=== PATIENT | male | born 1985 | race Caucasian/White ===

== ENCOUNTER 2017-12-21 04:04 | Emergency (ER) | payer SELFPAY ==
[2017-12-21 04:19] VITALS: BMI 26.6
[2017-12-21] MEDS ORDERED: SODIUM CHLORIDE 1,000 ML IV STA (04:24)
[2017-12-21] MEDS ORDERED: KETOROLAC TROMETHAMINE 30 MG/1 ML VIAL IVPUSH ONE (04:32)
[2017-12-21] MEDS ORDERED: KETOROLAC TROMETHAMINE 30 MG/1 ML VIAL ONE (05:01)
[2017-12-21 05:04] LABS: BASO % 0.6 % (0-2.0); EOS % 2.5 % (0-4.5); HEMATOCRIT 48.5 % (35.4-49); HEMOGLOBIN 16.3 GM/dL (11.7-16.9); LYMPH % 34.7 % (8-40); MCHC 33.7 g/dl (32.0-35.9); MEAN CELL VOLUME 83.1 fl (80-96); MEAN PLT VOLUME 7.7 fl (7.5-11.1); MONO % 8.4 % (3.8-10.2); NEUT % 53.8 % (42.8-82.8); PLATELET COUNT 210 K/MM3 (134-434); RBC 5.83 M/mm3 (4.00-5.60); WHITE BLOOD COUNT 7.2 K/mm3 (4.0-10.0)
[2017-12-21 05:35] LABS: ALK PHOS 108 U/L (45-117); ANION GAP 9 MMOL/L (8-16); BILIRUBIN,TOTAL 0.6 mg/dL (0.2-1); BLOOD UREA NITROGEN 17 mg/dL (7-18); CALCIUM 9.2 mg/dL (8.5-10.1); CHLORIDE 106 mmol/L (98-107); CO2 25 mmol/L (21-32); GLUCOSE,RANDOM 94 mg/dL (74-106); POTASSIUM 3.9 mmol/L (3.5-5.1); SGOT/AST 16 U/L (15-37); SGPT/ALT 59 U/L (13-61); SODIUM 140 mmol/L (136-145); TOT PROT 7.5 g/dl (6.4-8.2)
--- NOTE | 2017-12-21 05:50 | PDOC ---
*Physical Exam - Vital Signs Last Vital Signs Temp Pulse Resp BP Pulse Ox 97.4 F L 74 18 161/103 H 99 12/21/17 04:16 12/21/17 04:16 12/21/17 04:16 12/21/17 04:16 12/21/17 04:16 - Physical Exam Comments: 12/21/17 05:46 Afebrile, blood pressure elevated possibly secondary to pain Alert, no acute distress Heart is regular, lungs are clear Abdomen is soft and nondistended, tender along the left lateral abdomen with positive left CVA tenderness No edema, no rash ED Treatment Course - LABORATORY CBC & Chemistry Diagram: 12/21/17 04:54 12/21/17 04:54 - ADDITIONAL ORDERS Additional order review: Laboratory Results 12/21/17 04:54 Sodium 140 Potassium 3.9 Chloride 106 Carbon Dioxide 25 Anion Gap 9 BUN 17 Creatinine 1.0 Creat Clearance w eGFR > 60 Random Glucose 94 Calcium 9.2 Total Bilirubin 0.6 AST 16 ALT 59 Alkaline Phosphatase 108 Total Protein 7.5 Albumin 4.0 12/21/17 04:54 RBC 5.83 H MCV 83.1 MCHC 33.7 RDW 14.0 MPV 7.7 Neutrophils % 53.8 Lymphocytes % 34.7 Monocytes % 8.4 Eosinophils % 2.5 Basophils % 0.6 - Medications Given in the ED: ED Medications Discontinued Medications Generic Name Dose Route Start Last Admin Trade Name Freq PRN Reason Stop Dose Admin Sodium Chloride 1,000 mls @ 1,000 mls/hr 12/21/17 04:24 12/21/17 04:57 Normal Saline - IV 12/21/17 05:23 1,000 mls/hr ASDIR STA Administration Ketorolac Tromethamine 30 mg 12/21/17 04:32 12/21/17 04:58 Toradol Injection - IVPUSH 12/21/17 04:33 30 mg ONCE ONE Administration Medical Decision Making - Medical Decision Making 12/21/17 05:47 32-year-old male with history of kidney stones presents with 1-2 months of intermittent left flank pain and now severe left groin/left flank pain tonight. mild nausea, no vomiting. presentation most consistent with renal colic given hx , less likely GI. labs wnl, no leukocytosis, Cr nl UA pending CTAP shows dilated L extrarenal pelvis with moderate hydroureter 2/2 8x3mm UPJ stone. given large proximal stone and hydro, urology consult. received toradol with some improvement in pain level *DC/Admit/Observation/Transfer Diagnosis at time of Disposition: Renal colic on left side - Discharge Dispostion Condition at time of disposition: Stable - Referrals - Patient Instructions - Post Discharge Activity
--- NOTE | 2017-12-21 05:55 | PDOC ---
History of Present Illness - General Chief Complaint: Pain Stated Complaint: ABDOMINAL PAIN LEFT SIDE Time Seen by Provider: 12/21/17 04:17 History Source: Patient Exam Limitations: No Limitations - History of Present Illness Initial Comments: 32 y/o M hx of HTN, prior kidney stones 2017 s/p lithotripsy presents with L groin pain radiating up to L flank x several months, but getting severe tonight ; prior to this, the pain was mild in nature. States the pain feels just like his prior kidney stones and is in the exact location. Denies fever, chills, sob , cp, n/v/d, hematuria, dysuria, testicular pain, scrotal swelling, penile pain , testicular discharge. 12/21/17 05:48 Past History - Past Medical History Allergies/Adverse Reactions: Allergies Allergy/AdvReac Type Severity Reaction Status Date / Time No Known Allergies Allergy Verified 12/21/17 06:46 Home Medications: Ambulatory Orders Oxycodone HCl/Acetaminophen [Percocet 5-325 mg Tablet] 1 tab PO Q4H PRN #20 tablet MDD 6 12/21/17 Tamsulosin HCl [Flomax] 0.4 mg PO HS #7 cap.er.24h 12/21/17 COPD: No Other medical history: HTN, kidney stones - Suicide/Smoking/Psychosocial Hx Smoking History: Never smoked Have you smoked in the past 12 months: No Information on smoking cessation initiated: No Hx Alcohol Use: No Drug/Substance Use Hx: No Substance Use Type: None Abd/GI Specific PMHX - Complaint Specific PMHX Colitis: No Diverticulitis: No Gall Bladder Disease: No GERD: No Hepatitis: No Irritable Bowel Synd (IBS): No Pancreatitis: No GI Ulcer Disease: No Review of Systems - Review of Systems Comments:: See HPI 12/21/17 06:04 *Physical Exam - Vital Signs Last Vital Signs Temp Pulse Resp BP Pulse Ox 97.4 F L 74 18 161/103 H 99 12/21/17 04:16 12/21/17 04:16 12/21/17 04:16 12/21/17 04:16 12/21/17 04:16 - Physical Exam General Appearance: Yes: Mild Distress Respiratory/Chest: positive: Lungs Clear, Normal Breath Sounds. negative: Respiratory Distress, Accessory Muscle Use Cardiovascular: positive: Regular Rhythm, Regular Rate Gastrointestinal/Abdominal: positive: Normal Bowel Sounds, Tenderness (Along L groin). negative: Protuberent, Distended, Guarding, Rebound, Hernia, Mass Male Genitalia: positive: normal genitalia. negative: testicular tenderness, hernia, CVAT Musculoskeletal: negative: CVA Tenderness Extremity: positive: Normal Inspection ED Treatment Course - LABORATORY CBC & Chemistry Diagram: 12/21/17 04:54 12/21/17 04:54 - ADDITIONAL ORDERS Additional order review: Laboratory Results 12/21/17 04:54 Sodium 140 Potassium 3.9 Chloride 106 Carbon Dioxide 25 Anion Gap 9 BUN 17 Creatinine 1.0 Creat Clearance w eGFR > 60 Random Glucose 94 Calcium 9.2 Total Bilirubin 0.6 AST 16 ALT 59 Alkaline Phosphatase 108 Total Protein 7.5 Albumin 4.0 12/21/17 04:54 RBC 5.83 H MCV 83.1 MCHC 33.7 RDW 14.0 MPV 7.7 Neutrophils % 53.8 Lymphocytes % 34.7 Monocytes % 8.4 Eosinophils % 2.5 Basophils % 0.6 - RADIOLOGY Radiology Studies Ordered: Category Date Time Status ABDOMEN & PELVIS CT W/O CONTR [CT] Stat CT Scan 12/21/17 04:33 Taken - Medications Given in the ED: ED Medications Discontinued Medications Generic Name Dose Route Start Last Admin Trade Name Freq PRN Reason Stop Dose Admin Sodium Chloride 1,000 mls @ 1,000 mls/hr 12/21/17 04:24 12/21/17 04:57 Normal Saline - IV 12/21/17 05:23 1,000 mls/hr ASDIR STA Administration Ketorolac Tromethamine 30 mg 12/21/17 04:32 12/21/17 04:58 Toradol Injection - IVPUSH 12/21/17 04:33 30 mg ONCE ONE Administration Medical Decision Making - Medical Decision Making 32 y/o M hx of HTN, prior kidney stones presents with likely kidney stones. Unlikely testicular torsion, diverticulitis, UTI, pyelonephritis. Patient was given IVF and Toradol with improvement in pain. Labs showed unremarkable CBC and CMP. UA is negative. CT A/P showed 8x3 proximal UPJ stone with moderate L hydro. Case discussed with urologist, Dr. James Gibbs, who states as this is not infected stone, patient can follow-up as outpatient to get lithotripsy. Will discharge patient on Percocet, Flomax and referral to Dr. Gibbs. 12/21/17 06:06 *DC/Admit/Observation/Transfer Diagnosis at time of Disposition: Urolithiasis - Discharge Dispostion Disposition: HOME Condition at time of disposition: Improved Decision to Admit order: No - Prescriptions Prescriptions: Oxycodone HCl/Acetaminophen [Percocet 5-325 mg Tablet] 1 tab PO Q4H PRN #20 tablet MDD 6 PRN Reason: Pain Tamsulosin HCl [Flomax] 0.4 mg PO HS #7 cap.er.24h - Referrals Referrals: James Gibbs MD., [Staff Physician] - Call tomorrow - Patient Instructions Printed Discharge Instructions: DI for Kidney Stones Additional Instructions: Thank you for choosing [facility]. It was a pleasure taking care of you. You were found to have a 8x3 mm kidney stone along the left side causing your pain. You may take Motrin 600 mg every 4 hours by mouth as needed for mild to moderate pain. Take Motrin with food. For severe pain, you may take Percocet. This medication can make you constipated for which you may take over the counter Senna tablets as needed. This medication can also make you drowsy so please be cautious with driving or performing heavy physical work. Be sure to drink plenty of water daily (at least 2 liters a day) Also take the Flomax to help the stone pass Call the urologist tomorrow to make appointment as you may need a procedure called lithotripsy done to get rid of stone. Return to the Emergency Department if your symptoms worsen or persist, you have fever, shortness of breath, chest pain, severe abdominal pain, vomiting, unable to produce urine or have other concerning symptoms. - Post Discharge Activity
[2017-12-21 06:23] LABS: URINE APPEARANCE CLEAR; URINE BILIRUBIN NEGATIVE (<2.0 mg/dL); URINE COLOR YELLOW; URINE GLUCOSE (UA) NEGATIVE (NEGATIVE); URINE KETONE NEGATIVE (NEGATIVE); URINE LEUK ESTERASE NEGATIVE (NEGATIVE); URINE NITRITE NEGATIVE (NEGATIVE); URINE PROTEIN NEGATIVE (NEGATIVE); URINE UROBILINOGEN NEGATIVE mg/dL (0.2-1.0)
[2017-12-21 06:35] VITALS: BP 145/97; PULSE 99; TEMP 97.9
[2017-12-21 06:52] LABS: EPI CELLS RARE /HPF (FEW); URINE MUCUS FEW
== END 2017-12-21 07:08 | disposition home or self-care (01) ==
LOC: JER 04:04
PROC: 3E0333Z Introduction of Anti-inflammatory into Peripheral Vein, Percutaneous Approach (ICD-10-PCS; principal; 2017-12-21)
PROC: 3E0337Z Introduction of Electrolytic and Water Balance Substance into Peripheral Vein, Percutaneous Approach (ICD-10-PCS; 2017-12-21)
DX: N20.9 Urinary calculus, unspecified (principal); I10 Essential (primary) hypertension
CPT/HCPCS: 36415; 74176-TC; 80053; 81003; 81015; 85025; 87086; 99282-25; J7030

== ENCOUNTER 2023-06-18 12:21 | Emergency (ER) | payer SELFPAY ==
[2023-06-18 12:30] VITALS: BMI 29.3
[2023-06-18] MEDS ORDERED: KETOROLAC TROMETHAMINE 30 MG/1 ML VIAL ONE (14:04)
[2023-06-18] MEDS: KETOROLAC TROMETHAMINE 30 MG/1 ML VIAL IVPUSH ONE (14:13)
[2023-06-18 14:14] LABS: BASO % 0.7 % (0-2.0); EOS % 0.8 % (0-4.5); HEMOGLOBIN 16.4 GM/dL (11.7-16.9); LYMPH % 24.4 % (8-40); MCH 28.5 pg (25.7-33.7); MCHC 33.5 g/dl (32.0-35.9); MEAN CELL VOLUME 85.3 fl (80-96); MEAN PLT VOLUME 7.8 fl (7.5-11.1); MONO % 6.8 % (3.8-10.2); NEUT % 67.3 % (42.8-82.8); PLATELET COUNT 249 10^3/uL (134-434); RBC 5.74 M/mm3 (4.00-5.60); RDW 14.3 % (11.9-15.9); WHITE BLOOD COUNT 7.2 K/mm3 (4.0-10.0)
[2023-06-18] MEDS: SODIUM CHLORIDE 0.9% 500 ML INFUS.BAG IV ONE (14:14)
[2023-06-18 14:20] LABS: EPI CELLS 5 /uL (0-25.1); HYALINE CASTS 0 /uL (0-3.1); URINE APPEARANCE CLEAR; URINE BACTERIA 4 /uL (0-1359); URINE BILIRUBIN NEGATIVE (NEGATIVE); URINE COLOR YELLOW; URINE GLUCOSE (UA) NEGATIVE (NEGATIVE); URINE KETONE NEGATIVE (NEGATIVE); URINE LEUK ESTERASE TRACE (NEGATIVE); URINE NITRITE NEGATIVE (NEGATIVE); URINE PROTEIN TRACE (NEGATIVE); URINE RBC 337 /uL (0-23.9); URINE UROBILINOGEN 0.2 mg/dL (0.2-1.0); URINE WBC 23 /uL (0-25.8)
[2023-06-18 14:48] LABS: POTASSIUM 4.2 mmol/L (3.5-5.1)
[2023-06-18 14:50] LABS: CALCIUM 9.9 mg/dL (8.5-10.1)
[2023-06-18 14:51] LABS: ALBUMIN 4.2 g/dl (3.4-5.0); BLOOD UREA NITROGEN 14.8 mg/dL (7-18)
[2023-06-18 14:54] LABS: CREATININE 0.8 mg/dL (0.55-1.3)
[2023-06-18 14:56] LABS: BILIRUBIN,TOTAL 0.5 mg/dL (0.2-1); TOT PROT 7.4 g/dl (6.4-8.2)
[2023-06-18 17:22] VITALS: BP 125/81; PULSE 69; RESP 20; TEMP 98.6
== END 2023-06-18 17:22 | disposition home or self-care (01) ==
LOC: JER 12:21
PROC: 3E0333Z Introduction of Anti-inflammatory into Peripheral Vein, Percutaneous Approach (ICD-10-PCS; principal; 2023-06-18)
DX: R10.9 Unspecified abdominal pain (principal); N20.0 Calculus of kidney
CPT/HCPCS: 36415; 74176-TC; 80053; 81003; 85025; 86850; 86900; 86901; 87086; 99284-25